=== PATIENT | female | born 2000 | race Caucasian/White ===

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

== ENCOUNTER 2020-07-14 19:58 | Emergency (ER) | payer MEDICAID ==
[~2020-07-14] VITALS: Ht 157.5 cm; Wt 49.1 kg
[2020-07-14] MEDS ORDERED: METR500T PO (20:36)
[2020-07-14] MEDS ORDERED: CLIN150C2 PO (20:36)
[2020-07-14] MEDS ORDERED: HYDR-3965 PO (20:36)
[2020-07-14] MEDS ORDERED: ONDA4TAB6 PO (20:36)
[2020-07-14] MEDS ORDERED: METH4TAB81 PO (20:36)
[2020-07-14] MEDS ORDERED: HYDROcodone/acetaminophen 10/325mg tab PO ONE (20:40)
[2020-07-14] MEDS ORDERED: ondansetron 4mg rapidly disintigrating tab PO ONE (20:40)
[2020-07-14 21:05] VITALS: BP 112/62
== END 2020-07-14 21:07 | disposition home or self-care (01) ==
LOC: ER 19:59
DX: K00.6 Disturbances in tooth eruption (principal); K04.7 Periapical abscess without sinus; K02.9 Dental caries, unspecified; F17.210 Nicotine dependence, cigarettes, uncomplicated; Z88.0 Allergy status to penicillin; Z79.899 Other long term (current) drug therapy
CPT/HCPCS: 99283